=== PATIENT | male | born 2005 | race Caucasian/White ===

== ENCOUNTER 2025-01-06 00:04 | Emergency (ER) | payer SELFPAY ==
[~2025-01-06] VITALS: Ht 180.3 cm; Wt 82.3 kg
[2025-01-06 00:09] VITALS: BP 133/62; TEMP 97.5; O2SAT 100
[2025-01-06] MEDS: IBUPROFEN 600MG TAB PO ONE (04:03)
== END 2025-01-06 04:45 | disposition left against medical advice (07) ==
LOC: M ED 00:04
DX: Z53.21 Procedure and treatment not carried out due to patient leaving prior to being seen by health care provider (principal)